=== PATIENT | male | born 1990 | race Caucasian/White ===

== ENCOUNTER 2016-12-03 15:24 | Emergency (ER) | payer OTHER ==
[~2016-12-03] VITALS: Ht 188 cm; Wt 98.9 kg
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
[2016-12-03] MEDS ORDERED: OLANZapine 5 MG ODT (ZyPREXA ZYDIS) PO ONE (16:00)
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
[2016-12-03] MEDS ORDERED: ALPR1TAB7 (16:06)
[2016-12-03] MEDS ORDERED: SERT100T8 (16:06)
[2016-12-03] MEDS ORDERED: TRAZ100T92 (16:06)
[2016-12-03] MEDS ORDERED: LIDOCAINE 1% INJ 20 ML (XYLOCAINE) VIAL INJ ONE (16:45)
[2016-12-03] MEDS ORDERED: AZITHROMYCIN 250 MG TAB (ZITHROMAX) PO SCH (16:45)
[2016-12-03] MEDS ORDERED: cefTRIAXone 1 GM (ROCEPHIN) VIAL IM ONE (16:45)
--- NOTE | 2016-12-03 16:49 | Diagnostic Imaging Report ---
PROCEDURE: US venous upper extremity left. TECHNIQUE: Multiple realtime grayscale images were obtained of left upper extremity in various projections. Duplex Doppler and and color Doppler images were also obtained. INDICATION: Left arm pain and swelling. FINDINGS: There is normal flow and phasicity within the left internal jugular vein within the left subclavian and left axillary vein. The brachial, basilic and cephalic veins demonstrate appropriate flow without thrombosis. Proximal radial and ulnar veins are patent. There appears to be a small degree of fluid in the region of the left antecubital fossa which may relate to the patient's reported injection. IMPRESSION: 1. No sonographic evidence of left upper extremity deep venous thrombosis. 2. Small collection of fluid in the region of the antecubital fossa may reflect contents related to patient's reported recent injection. Dictated by: Dictated on workstation # [id number]
[2016-12-03 16:58] VITALS: BP 136/85
[2016-12-06 08:07] LABS: CHLAMYDIA DNA URINE Not Detected (Not Detected); NEISSERIA GONORRHEA DNA URINE Not Detected (Not Detected)
== END 2016-12-03 16:58 | disposition home or self-care (01) ==
LOC: ER 15:27
DX: F15.10 Other stimulant abuse, uncomplicated (principal); F41.9 Anxiety disorder, unspecified
CPT/HCPCS: 36415; 87491; 87591; 99284